=== PATIENT | male | born 1950 | race African-American/Black ===

== ENCOUNTER 2018-11-29 18:48 | Inpatient (IN) | payer MEDICARE ==
[~2018-11-29] VITALS: Ht 175.3 cm; Wt 98.5 kg
--- NOTE | 2018-11-29 19:05 | NUR ---
BIB EMS TRANSFER FROM [facility] PT WITH INCREASING SOB OVER PAST 3 WEEKS STRONG HX: COPD,CHF, CAD, AAA, A-FIB, DM, HTN. PT STATES "I'M FULL OF FLUID" PT TRANSFERED TO [facility], AND ALL MONITORS PLACED 02 DELIVERY CHANGED FROM [place] TO OXY MASK 10L, SP-02 = 91%. DR JEFFERS AT BEDSIDE, POC DISCUSSED ORDERS REC'D. SBAR RPT TO FREEMAN BROWNING.
--- NOTE | 2018-11-29 19:48 | NUR ---
PT RESTING QUIETLY WATCHING TV, REMAINS ON 10 LPM, SATS 91-93%
[2018-11-29] MEDS ORDERED: LIDOCAINE-MPF 1%, 5ML ONE (19:53)
[2018-11-29 19:55] LABS: TROPONIN I 0.515 ng/mL (0.000-0.045)
[2018-11-29] MEDS ORDERED: ASPI-650 PO (19:55)
[2018-11-29] MEDS ORDERED: ALBU2.5V11 NEB (19:55)
[2018-11-29] MEDS ORDERED: CHOL2000 PO (19:55)
[2018-11-29] MEDS ORDERED: FERR324T5 PO (19:55)
[2018-11-29] MEDS ORDERED: AMLO-150 PO (19:55)
[2018-11-29] MEDS ORDERED: METF500T17 PO (20:00)
[2018-11-29] MEDS ORDERED: HYDR-3307 PO (20:00)
[2018-11-29] MEDS ORDERED: PROP60CA PO (20:00)
[2018-11-29] MEDS ORDERED: FURO20TA3 PO (20:00)
[2018-11-29] MEDS ORDERED: OMEP-110 PO (20:00)
[2018-11-29] MEDS ORDERED: FLUT1DIS3 INH (20:00)
[2018-11-29] MEDS ORDERED: LOSA100T14 PO (20:00)
[2018-11-29] MEDS ORDERED: SIMV80TA18 PO (20:00)
--- NOTE | 2018-11-29 20:10 | NUR ---
PT IN NO DISTRESS AT THIS TIME
--- NOTE | 2018-11-29 20:10 | NUR ---
PT TO IR FOR THORACENTISIS
--- NOTE | 2018-11-29 20:50 | NUR ---
PT BACK FROM IR, NO DISTRESS NOTED
--- NOTE | 2018-11-29 21:30 | NUR ---
PT TALKING WITH SPOUSE, NO DISTRESS NOTED, HOSPITALIST HAS SEEN PT
[2018-11-29] MEDS ORDERED: GABAPENTIN 300 MG CAPSULE PO PRN (22:00)
[2018-11-29] MEDS ORDERED: TEMAZEPAM 15 MG CAPSULE PO PRN (22:00)
[2018-11-29] MEDS ORDERED: ACETAMINOPHEN 325 MG TABLET PO PRN (22:00)
[2018-11-29] MEDS ORDERED: ONDANSETRON ODT 4 MG PO PRN (22:00)
[2018-11-29] MEDS ORDERED: BISACODYL 10 MG SUPP PR PRN (22:00)
[2018-11-29] MEDS ORDERED: LIDODERM 5% PATCH TD PRN (22:00)
--- NOTE | 2018-11-29 22:26 | NUR ---
PT PROVIDED WITH MEAL.
[2018-11-29] MEDS ORDERED: HEPARIN 5,000 UNITS/ML, 1ML ONE (22:51)
--- NOTE | 2018-11-29 22:58 | NUR ---
REPORT TO FREEMAN MCNULTY.
[2018-11-29] MEDS: HEPARIN 5,000 UNITS/ML, 1ML SQ SCH (23:03)
[2018-11-29] MEDS: ALBUTEROL/IPRATROPIUM 2.5MG/0.5MG, 3 ML NPPB SCH (23:03)
--- NOTE | 2018-11-29 23:09 | NUR ---
DELAY IN PT BEING TRANSPORTED UPSTAIRS DUE TO LAB BEING AT BEDSIDE.
--- NOTE | 2018-11-29 23:09 | NUR ---
PT MEDICATED PER EMAR WITH HEPARIN SUBQ
[2018-11-29 23:15] VITALS: BP 124/76
[2018-11-29 23:27] LABS: TROPONIN I 0.518 ng/mL (0.000-0.045)
[2018-11-30 01:36] VITALS: BP 122/69
[2018-11-30 05:35] LABS: MEAN CORPUSCULAR HEMOGLOBIN 29.8 pg (27.5-34.5); MEAN CORPUSCULAR VOLUME 96.1 fL (81-97); MEAN PLATELET VOLUME 8.7 fL (7.4-10.4); PLATELET COUNT 164 x10^3/uL (130-400); RED CELL DISTRIBUTION WIDTH 24.4 % (9.4-14.8)
[2018-11-30 05:51] LABS: ALANINE AMINOTRANSFERASE 15 U/L (12-78); ALBUMIN 2.7 g/dL (3.4-5.0); ANION GAP 6 mmol/L (5-15); CALCIUM 8.6 mg/dL (8.5-10.1); CHLORIDE 108 mmol/L (98-107); CREATININE 1.49 mg/dL (0.7-1.3)
[2018-11-30 05:55] LABS: ALKALINE PHOSPHATASE 104 U/L (45-117); BILIRUBIN,TOTAL 0.6 mg/dL (0.2-1.0); TOTAL PROTEIN 7.1 g/dL (6.4-8.2); TROPONIN I 0.493 ng/mL (0.000-0.045)
[2018-11-30 06:03] LABS: BASOPHILS # (AUTO) 0.01 x10^3/uL (0-0.1); BASOPHILS % (AUTO) 0 % (0-1); EOSINOPHILS # (AUTO) 0.16 x10^3/uL (0-0.4); EOSINOPHILS % (AUTO) 4 % (1-7); LYMPHOCYTES # (AUTO) 0.53 x10^3/uL (1-3.4); LYMPHOCYTES % (AUTO) 13 % (22-44); MD MORPH REVIEW ONLY; MONOCYTES % (AUTO) 7 % (2-9); NEUTROPHILS # (AUTO) 3.15 x10^3/uL (1.8-6.8); NEUTROPHILS % (AUTO) 76 % (42-75)
[2018-11-30 06:05] LABS: ANISOCYTOSIS 2+; MICROCYTOSIS 1+
[2018-11-30 06:06] LABS: <PLATELET ESTIMATE> ADEQUATE; <PLT MORPHOLOGY> NORMAL PLT MORPH; HYPOCHROMIA 1+; OVALOCYTES 1+
[2018-11-30 07:30] VITALS: BP 132/78
[2018-11-30] MEDS: ALBUTEROL/IPRATROPIUM 2.5MG/0.5MG, 3 ML NPPB SCH ×3 (08:14→21:23)
[2018-11-30] MEDS: BUDESONIDE 0.5 MG/2 ML INHA NPPB SCH ×2 (08:14→21:23)
[2018-11-30] MEDS: HEPARIN 5,000 UNITS/ML, 1ML SQ SCH ×3 (09:14→22:58)
[2018-11-30] MEDS: FUROSEMIDE 20 MG/2 ML IV SCH ×2 (09:14→17:03)
[2018-11-30] MEDS: CARVEDILOL 6.25 MG TABLET PO SCH ×2 (12:52→17:04)
[2018-11-30] MEDS: LOSARTAN 50MG TABLET PO SCH (12:52)
[2018-11-30 13:51] VITALS: BP 112/63
[2018-11-30] MEDS ORDERED: LIDOCAINE-MPF 1%, 5ML ONE (15:14)
[2018-11-30 19:47] VITALS: BP 109/76
[2018-11-30] MEDS: ATORVASTATIN 80 MG TABLET PO SCH (19:52)
[2018-12-01] VITALS (8 sets, daily range): BP systolic 85–115; BP diastolic 43–81
[2018-12-01] MEDS: ALBUTEROL/IPRATROPIUM 2.5MG/0.5MG, 3 ML NPPB SCH ×4 (02:40→18:54)
[2018-12-01] MEDS: CARVEDILOL 6.25 MG TABLET PO SCH ×2 (06:29→18:19)
[2018-12-01] MEDS: HEPARIN 5,000 UNITS/ML, 1ML SQ SCH ×3 (06:29→23:39)
[2018-12-01] MEDS: BUDESONIDE 0.5 MG/2 ML INHA NPPB SCH ×2 (07:19→18:54)
[2018-12-01] MEDS ORDERED: MAGNESIUM SULFATE PMX 2GM/50ML 50 ML IV ONE (09:00)
[2018-12-01] MEDS: FUROSEMIDE 20 MG/2 ML IV SCH ×2 (09:05→16:08)
[2018-12-01] MEDS: LOSARTAN 50MG TABLET PO SCH (10:34)
[2018-12-01] MEDS ORDERED: DIGOXIN 0.25 MG/ML, 2ML IVPush ONE (13:30)
[2018-12-01] MEDS: DIGOXIN 0.25 MG/ML, 2ML IVPush SCH (18:20)
[2018-12-01] MEDS: ATORVASTATIN 80 MG TABLET PO SCH (21:00)
[2018-12-01] MEDS: metFORMIN 500 MG TABLET PO SCH (22:05)
[2018-12-02] MEDS: DIGOXIN 0.25 MG/ML, 2ML IVPush SCH (00:40)
[2018-12-02] MEDS: ALBUTEROL/IPRATROPIUM 2.5MG/0.5MG, 3 ML NPPB SCH ×4 (03:40→21:50)
[2018-12-02 05:20] LABS: ANION GAP 5 mmol/L (5-15); CALCIUM 8.1 mg/dL (8.5-10.1); CHLORIDE 104 mmol/L (98-107)
[2018-12-02 06:36] VITALS: BP 120/65
[2018-12-02] MEDS: CARVEDILOL 6.25 MG TABLET PO SCH (06:39)
[2018-12-02] MEDS: HEPARIN 5,000 UNITS/ML, 1ML SQ SCH ×3 (06:40→22:41)
[2018-12-02] MEDS: FUROSEMIDE 40 MG/4 ML IV SCH ×2 (06:40→16:41)
[2018-12-02] MEDS: BUDESONIDE 0.5 MG/2 ML INHA NPPB SCH ×2 (09:00→21:50)
[2018-12-02] MEDS: TEMPLATE NON-FORMULARY MED. (Fluticasone/Salmeterol** (Advair 250-50 Diskus**) 1 PUFF) INH SCH (09:00)
[2018-12-02] MEDS: metFORMIN 500 MG TABLET PO SCH ×2 (10:56→22:39)
[2018-12-02] MEDS: FERROUS SULFATE 325 MG TABLET PO SCH (10:56)
[2018-12-02] MEDS: OMEPRAZOLE 20 MG CAPSULE.DR PO SCH (10:56)
[2018-12-02] MEDS: ASPIRIN 325 MG TABLET EC PO SCH (10:56)
[2018-12-02] MEDS ORDERED: PROPRANOLOL 40 MG TABLET ONE (12:56)
[2018-12-02 13:03] VITALS: BP 115/78
[2018-12-02] MEDS: PROPRANOLOL 60 MG TABLET PO SCH ×2 (13:04→22:47)
[2018-12-02] MEDS ORDERED: CARVEDILOL 6.25 MG TABLET PO SCH (18:00)
[2018-12-02 20:17] VITALS: BP 100/65
[2018-12-02] MEDS: SIMVASTATIN 40 MG TABLET PO SCH (22:40)
[2018-12-03 01:50] VITALS: BP 105/62
[2018-12-03] MEDS: ALBUTEROL/IPRATROPIUM 2.5MG/0.5MG, 3 ML NPPB SCH ×4 (03:55→19:16)
[2018-12-03 06:00] VITALS: BP 110/66
[2018-12-03] MEDS: HEPARIN 5,000 UNITS/ML, 1ML SQ SCH ×3 (06:06→22:55)
[2018-12-03] MEDS: PROPRANOLOL 60 MG TABLET PO SCH ×2 (06:06→17:09)
[2018-12-03] MEDS: FUROSEMIDE 40 MG/4 ML IV SCH ×2 (06:07→17:08)
[2018-12-03] MEDS: BUDESONIDE 0.5 MG/2 ML INHA NPPB SCH ×2 (06:44→19:16)
[2018-12-03 07:03] VITALS: BP 130/70
[2018-12-03] MEDS: TEMPLATE NON-FORMULARY MED. (Fluticasone/Salmeterol** (Advair 250-50 Diskus**) 1 PUFF) INH SCH (09:00)
[2018-12-03] MEDS: OMEPRAZOLE 20 MG CAPSULE.DR PO SCH (09:02)
[2018-12-03] MEDS: metFORMIN 850 MG TABLET PO SCH ×2 (09:02→20:16)
[2018-12-03] MEDS: FERROUS SULFATE 325 MG TABLET PO SCH (09:02)
[2018-12-03] MEDS: ASPIRIN 325 MG TABLET EC PO SCH (09:02)
[2018-12-03 12:23] VITALS: BP 133/82
[2018-12-03 17:06] VITALS: BP 135/79
[2018-12-03] MEDS: SIMVASTATIN 40 MG TABLET PO SCH (20:17)
[2018-12-03 21:04] VITALS: BP 138/81
[2018-12-04 02:55] VITALS: BP 126/84
[2018-12-04] MEDS: ALBUTEROL/IPRATROPIUM 2.5MG/0.5MG, 3 ML NPPB SCH ×4 (03:05→21:01)
[2018-12-04 06:08] VITALS: BP 121/77
[2018-12-04] MEDS: PROPRANOLOL 60 MG TABLET PO SCH ×2 (06:10→17:15)
[2018-12-04] MEDS: HEPARIN 5,000 UNITS/ML, 1ML SQ SCH ×3 (06:11→22:58)
[2018-12-04] MEDS: TEMPLATE NON-FORMULARY MED. (Fluticasone/Salmeterol** (Advair 250-50 Diskus**) 1 PUFF) INH SCH (07:46)
[2018-12-04] MEDS: FUROSEMIDE 40 MG/4 ML IV SCH ×2 (08:01→17:15)
[2018-12-04] MEDS: FERROUS SULFATE 325 MG TABLET PO SCH (08:01)
[2018-12-04] MEDS: OMEPRAZOLE 20 MG CAPSULE.DR PO SCH (08:01)
[2018-12-04] MEDS: ASPIRIN 325 MG TABLET EC PO SCH (08:01)
[2018-12-04] MEDS: metFORMIN 850 MG TABLET PO SCH ×2 (08:01→20:44)
[2018-12-04 08:44] VITALS: BP 136/81
[2018-12-04] MEDS: BUDESONIDE 0.5 MG/2 ML INHA NPPB SCH ×2 (09:23→21:01)
[2018-12-04 13:20] VITALS: BP 122/73
[2018-12-04 20:39] VITALS: BP 109/75
[2018-12-04] MEDS: SIMVASTATIN 40 MG TABLET PO SCH (20:44)
[2018-12-05 02:20] VITALS: BP 94/54
[2018-12-05] MEDS: ALBUTEROL/IPRATROPIUM 2.5MG/0.5MG, 3 ML NPPB SCH ×4 (03:00→21:00)
[2018-12-05 06:12] VITALS: BP 110/75
[2018-12-05] MEDS: BUDESONIDE 0.5 MG/2 ML INHA NPPB SCH ×2 (06:17→21:00)
[2018-12-05] MEDS: HEPARIN 5,000 UNITS/ML, 1ML SQ SCH (06:20)
[2018-12-05] MEDS: PROPRANOLOL 60 MG TABLET PO SCH ×2 (06:21→16:54)
[2018-12-05] MEDS: FUROSEMIDE 40 MG/4 ML IV SCH (07:30)
[2018-12-05] MEDS: TEMPLATE NON-FORMULARY MED. (Fluticasone/Salmeterol** (Advair 250-50 Diskus**) 1 PUFF) INH SCH (07:36)
[2018-12-05] MEDS: ASPIRIN 325 MG TABLET EC PO SCH (07:46)
[2018-12-05] MEDS: FERROUS SULFATE 325 MG TABLET PO SCH (07:46)
[2018-12-05] MEDS: metFORMIN 850 MG TABLET PO SCH (07:46)
[2018-12-05] MEDS: OMEPRAZOLE 20 MG CAPSULE.DR PO SCH (07:46)
[2018-12-05 08:10] LABS: ANION GAP 5 mmol/L (5-15); CALCIUM 8.7 mg/dL (8.5-10.1); CHLORIDE 98 mmol/L (98-107); CREATININE 1.43 mg/dL (0.7-1.3)
[2018-12-05 08:12] LABS: MEAN CORPUSCULAR HEMOGLOBIN 29.6 pg (27.5-34.5); MEAN CORPUSCULAR HGB CONC 31.2 g/dL (33.2-36.2); MEAN CORPUSCULAR VOLUME 94.8 fL (81-97); MEAN PLATELET VOLUME 8.6 fL (7.4-10.4); PLATELET COUNT 201 x10^3/uL (130-400); RED BLOOD COUNT 4.53 x10^6/uL (4.38-5.82); RED CELL DISTRIBUTION WIDTH 22.5 % (9.4-14.8)
[2018-12-05 08:31] LABS: BASOPHILS # (AUTO) 0.01 x10^3/uL (0-0.1); BASOPHILS % (AUTO) 0 % (0-1); EOSINOPHILS # (AUTO) 0.26 x10^3/uL (0-0.4); EOSINOPHILS % (AUTO) 7 % (1-7); LYMPHOCYTES % (AUTO) 20 % (22-44); MD SCAN; MONOCYTES % (AUTO) 10 % (2-9); NEUTROPHILS # (AUTO) 2.48 x10^3/uL (1.8-6.8); NEUTROPHILS % (AUTO) 63 % (42-75)
[2018-12-05] MEDS: FUROSEMIDE 40 MG TABLET PO SCH ×2 (09:38→16:54)
[2018-12-05] MEDS: APIXABAN 5 MG TABLET PO SCH ×2 (09:38→20:35)
[2018-12-05] MEDS ORDERED: DIGOXIN 0.25 MG TABLET PO SCH (10:00)
[2018-12-05] MEDS: DILTIAZEM 120 MG CAP.ER.24H PO SCH (10:14)
[2018-12-05 13:17] VITALS: BP 113/78
[2018-12-05 19:47] VITALS: BP 121/73
[2018-12-05] MEDS: SIMVASTATIN 40 MG TABLET PO SCH (20:35)
[2018-12-06 00:35] VITALS: BP 117/72
[2018-12-06] MEDS: ALBUTEROL/IPRATROPIUM 2.5MG/0.5MG, 3 ML NPPB SCH ×2 (02:54→09:00)
[2018-12-06 05:52] LABS: CALCIUM 8.7 mg/dL (8.5-10.1); CHLORIDE 98 mmol/L (98-107)
[2018-12-06 05:55] VITALS: BP 105/63
[2018-12-06 05:55] LABS: ANION GAP 5 mmol/L (5-15); CREATININE 1.47 mg/dL (0.7-1.3)
[2018-12-06] MEDS: PROPRANOLOL 60 MG TABLET PO SCH (05:57)
[2018-12-06 05:58] LABS: MEAN CORPUSCULAR HEMOGLOBIN 30.4 pg (27.5-34.5); MEAN CORPUSCULAR HGB CONC 31.9 g/dL (33.2-36.2); MEAN CORPUSCULAR VOLUME 95.3 fL (81-97); MEAN PLATELET VOLUME 7.9 fL (7.4-10.4); PLATELET COUNT 192 x10^3/uL (130-400); RED BLOOD COUNT 4.49 x10^6/uL (4.38-5.82)
[2018-12-06 06:57] LABS: BASOPHILS % (AUTO) 0 % (0-1); EOSINOPHILS # (AUTO) 0.32 x10^3/uL (0-0.4); EOSINOPHILS % (AUTO) 8 % (1-7); LYMPHOCYTES # (AUTO) 0.98 x10^3/uL (1-3.4); LYMPHOCYTES % (AUTO) 24 % (22-44); MD SCAN; MONOCYTES # (AUTO) 0.38 x10^3/uL (0.2-0.8); MONOCYTES % (AUTO) 9 % (2-9); NEUTROPHILS # (AUTO) 2.39 x10^3/uL (1.8-6.8); NEUTROPHILS % (AUTO) 59 % (42-75)
[2018-12-06] MEDS: TEMPLATE NON-FORMULARY MED. (Fluticasone/Salmeterol** (Advair 250-50 Diskus**) 1 PUFF) INH SCH (07:41)
[2018-12-06 07:45] VITALS: BP 113/77
[2018-12-06] MEDS: ASPIRIN 325 MG TABLET EC PO SCH (09:00)
[2018-12-06] MEDS: BUDESONIDE 0.5 MG/2 ML INHA NPPB SCH (09:00)
[2018-12-06] MEDS: OMEPRAZOLE 20 MG CAPSULE.DR PO SCH (11:30)
[2018-12-06] MEDS: FUROSEMIDE 40 MG TABLET PO SCH (11:30)
[2018-12-06] MEDS: DILTIAZEM 120 MG CAP.ER.24H PO SCH (11:30)
[2018-12-06] MEDS: APIXABAN 5 MG TABLET PO SCH (11:30)
[2018-12-06] MEDS: FERROUS SULFATE 325 MG TABLET PO SCH (11:30)
[2018-12-06] MEDS ORDERED: ASPIRIN 81 MG TABLET EC ONE (11:31)
[2018-12-06 12:47] VITALS: BP 124/73
[2018-12-06] MEDS ORDERED: DILT120C9 PO (12:55)
[2018-12-06] MEDS ORDERED: FURO40TA6 PO (12:55)
[2018-12-06] MEDS ORDERED: APIX5TAB PO (12:55)
== END 2018-12-06 14:05 | disposition home or self-care (01) | DRG 291 ==
LOC: ED 20:27 → EDIP 20:32 → ED 20:42 → 5SO 23:14 → DCLOUNGE 12-06 13:44
PROVIDERS: ADMIT Internal Medicine; ATTEND Internal Medicine
PROC: 0W993ZZ Drainage of Right Pleural Cavity, Percutaneous Approach (ICD-10-PCS; principal; 2018-11-29)
PROC: 0W993ZZ Drainage of Right Pleural Cavity, Percutaneous Approach (ICD-10-PCS; 2018-11-30)
DX: I13.0 Hypertensive heart and chronic kidney disease with heart failure and stage 1 through stage 4 chronic kidney disease, or unspecified chronic kidney disease (principal); I50.23 Acute on chronic systolic (congestive) heart failure; J96.21 Acute and chronic respiratory failure with hypoxia; J44.1 Chronic obstructive pulmonary disease with (acute) exacerbation; D68.69 Other thrombophilia; I48.92 Unspecified atrial flutter; I42.0 Dilated cardiomyopathy; E11.21 Type 2 diabetes mellitus with diabetic nephropathy; E11.22 Type 2 diabetes mellitus with diabetic chronic kidney disease; G47.30 Sleep apnea, unspecified; I25.10 Atherosclerotic heart disease of native coronary artery without angina pectoris; I27.20 Pulmonary hypertension, unspecified; I48.91 Unspecified atrial fibrillation; N18.3 Chronic kidney disease, stage 3 (moderate); Z72.0 Tobacco use; Z79.899 Other long term (current) drug therapy; Z86.79 Personal history of other diseases of the circulatory system; Z95.5 Presence of coronary angioplasty implant and graft
CPT/HCPCS: 32555; 36415; 36600; 71045; 76770; 80048; 80053; 82803; 83735; 83880; 84145; 84484; 85025; 93005; 93306; 94640; 99285; G0378; J1644; J1940; J7620; J7626; J1160; J3475

== ENCOUNTER 2019-02-02 07:26 | Day surgery (SDC) | payer MEDICARE ==
[~2019-02-02] VITALS: Ht 175.3 cm; Wt 100.0 kg
[~2019-02-02 07:26] MED LIST: ALBU2.5V11 NEB; AMLO-150 PO; APIX5TAB PO; ASPI-650 PO; CHOL2000 PO; DILT120C9 PO; FERR324T5 PO; FLUT1DIS3 INH; FURO20TA3 PO; FURO40TA6 PO; HYDR-3307 PO; LOSA100T14 PO; METF500T17 PO; OMEP-110 PO; PROP60CA PO; SIMV80TA18 PO
[2019-02-02] MEDS ORDERED: SODIUM CHLORIDE 0.9% 1,000 ML IV SCH (07:48)
[2019-02-02 07:53] VITALS: BP 129/80
[2019-02-02] MEDS ORDERED: OMEG1CAP6 PO (08:20)
[2019-02-02] MEDS ORDERED: DEXAMETHASONE 4 MG/ML, 1ML ONE (12:48)
[2019-02-02] MEDS ORDERED: ROCURONIUM 10MG/ML,5ML ONE (12:48)
[2019-02-02] MEDS ORDERED: SUCCINYLCHOLINE 20 MG/ML, 10ML ONE (12:48)
[2019-02-02] MEDS ORDERED: HEPARIN 1,000 UNITS/ML, 10ML ONE (12:53)
[2019-02-02] MEDS ORDERED: LIDOCAINE 2%, 20ML ONE (12:53)
[2019-02-02] MEDS ORDERED: PROTAMINE SULFATE 10 MG/ML, 5ML ONE (12:54)
[2019-02-02] MEDS ORDERED: FENTANYL PF 250 MCG/5ML ONE (12:55)
[2019-02-02] MEDS ORDERED: MIDAZOLAM 1 MG/ML, 2ML ONE (12:55)
[2019-02-02] MEDS ORDERED: PROPOFOL 50 ML ONE (12:55)
[2019-02-02] MEDS ORDERED: EPHEDRINE 50 MG/ML, 1ML IVPush PRN (14:30)
[2019-02-02] MEDS ORDERED: ACETAMINOPHEN 325 MG TABLET PO PRN ×2 (14:30→15:00)
[2019-02-02] MEDS ORDERED: OXYcodone 5 MG/5 ML ORAL.SOL UDC PO PRN (14:30)
[2019-02-02] MEDS ORDERED: DIAZEPAM 5 MG/ML, 2ML IVPush PRN (14:30)
[2019-02-02] MEDS ORDERED: DIPHENHYDRAMINE 50 MG/ML, 1ML IVPush PRN (14:30)
[2019-02-02] MEDS ORDERED: ONDANSETRON 2MG/ML, 2ML IV PRN (14:30)
[2019-02-02] MEDS ORDERED: EPHEDRINE 50 MG/ML, 1ML IM PRN (14:30)
[2019-02-02] MEDS ORDERED: ONDANSETRON ODT 8 MG PO PRN (14:30)
[2019-02-02] MEDS ORDERED: MORPHINE SULFATE 4 MG/ML, 1ML IVPush PRN (14:30)
[2019-02-02] MEDS ORDERED: METOPROLOL 1 MG/ML, 5ML IV PRN (14:30)
[2019-02-02] MEDS ORDERED: MIDAZOLAM 1 MG/ML, 2ML IV PRN (14:30)
[2019-02-02] MEDS ORDERED: FENTANYL PF 100 MCG/2ML IV PRN (14:30)
[2019-02-02] MEDS ORDERED: HYDROcodone/APAP 10/325 MG TABLET PO PRN (15:00)
[2019-02-02] MEDS ORDERED: ALBUTEROL SULFATE 2.5 MG/3 ML NPPB SCH (17:00)
[2019-02-02] MEDS ORDERED: PROPRANOLOL 60 MG CAP.SA.24H PO SCH (21:00)
[2019-02-02] MEDS ORDERED: BUDESONIDE 0.5 MG/2 ML INHA NPPB SCH (21:00)
[2019-02-02] MEDS ORDERED: APIXABAN 5 MG TABLET PO SCH (21:00)
[2019-02-02] MEDS ORDERED: SIMVASTATIN 40 MG TABLET PO SCH (21:00)
[2019-02-03] MEDS ORDERED: OMEPRAZOLE 20 MG CAPSULE.DR PO SCH (09:00)
[2019-02-03] MEDS ORDERED: FUROSEMIDE 40 MG TABLET PO SCH (09:00)
[2019-02-03] MEDS ORDERED: LOSARTAN 50MG TABLET PO SCH (09:00)
[2019-02-03] MEDS ORDERED: ASPIRIN 81 MG TABLET CHEW PO SCH (09:00)
[2019-02-03] MEDS ORDERED: DILTIAZEM 120 MG CAP.ER.24H PO SCH (09:00)
[2019-02-03] MEDS ORDERED: TEMPLATE NON-FORMULARY MED. (Fluticasone/Salmeterol** (Advair 250-50 Diskus**) 1 PUFF) INH SCH (09:00)
== END 2019-02-02 18:29 | disposition home or self-care (01) ==
LOC: CACL 07:26 → 5SO 16:54 → CACL 18:29
PROVIDERS: ATTEND Internal Medicine Cardiovascular Disease
DX: I48.92 Unspecified atrial flutter (principal); J44.9 Chronic obstructive pulmonary disease, unspecified; I25.10 Atherosclerotic heart disease of native coronary artery without angina pectoris; I10 Essential (primary) hypertension; Z79.82 Long term (current) use of aspirin
CPT/HCPCS: 93312; 93321; 93325; 93613; 93621; 93653; C1730; C1731; C1894; C2630; J1644; J2250; J2704; J2720; J3010; G0378; J1100; J0330

== ENCOUNTER → 2020-10-27 | Outpatient (CLI) | payer MEDICARE ==
[~2020-10-27] MED LIST changes: +DILT120C48 PO; -DILT120C9 PO; +HYDR-3246 PO; -HYDR-3307 PO; +OMEG1CAP6 PO; +REGADENOSON 0.4 MG/5 ML SYRINGE ONE
== END | disposition home or self-care (01) ==
LOC: CFH 10:04
PROVIDERS: ATTEND Internal Medicine Cardiovascular Disease
DX: I08.8 Other rheumatic multiple valve diseases (principal); I21.19 ST elevation (STEMI) myocardial infarction involving other coronary artery of inferior wall; E78.5 Hyperlipidemia, unspecified; I25.10 Atherosclerotic heart disease of native coronary artery without angina pectoris; I10 Essential (primary) hypertension; Z87.891 Personal history of nicotine dependence
CPT/HCPCS: 78452; 93017; 93306; A9502; J2785